=== PATIENT | female | born 1930 | race Caucasian/White ===

== ENCOUNTER → 2016-12-02 | Outpatient (CLI) | payer MEDICARE, BC ==
[~2016-12-02] MED LIST: ACUVITE PO; CORE25TA PO; DIGO0.12 PO; DOFE250 PO; FURO1TAB62 PO; LEVEMIR SQ; LIOT25TA3 PO
[2016-12-02 13:22] LABS: MICRO ALBUMIN RANDOM URINE RAW 47.1 MG/L (0.0-30.0)
[2016-12-02 13:41] LABS: GLUCOSE,FASTING 117 MG/DL (74-99)
[2016-12-02 13:44] LABS: AST (GOT) 21 U/L (15-37)
[2016-12-02 13:54] LABS: ALKALINE PHOSPHATASE 99 U/L (45-117); ALT (GPT) 31 U/L (10-53); FREE T4 0.58 NG/DL (0.76-1.46); HDL CHOLESTEROL 32.8 MG/DL (40.0-60.0); INDIRECT BILIRUBIN 0.9 MG/DL (0.0-0.8); LDL CHOLESTEROL 138 MG/DL (0-99); TOTAL BILIRUBIN ADULT 1.1 MG/DL (0.2-1.0)
[2016-12-02 17:20] LABS: HEMOGLOBIN A1a 0.8 %; HEMOGLOBIN A1b 2.1 %; HEMOGLOBIN Ao 82.8 %; HEMOGLOBIN LA1C 1.9 %; HEMOGLOBIN P3 3.9 %
== END ==
LOC: PLAB 08:25
PROVIDERS: ATTEND Family Medicine
DX: E78.2 Mixed hyperlipidemia (principal); E03.9 Hypothyroidism, unspecified; I10 Essential (primary) hypertension; Z79.899 Other long term (current) drug therapy
CPT/HCPCS: 36415; 80061; 80076; 82043; 82947; 83036; 84439; 84443; 84480